=== PATIENT | female | born 1965 | race Caucasian/White ===

== ENCOUNTER 2021-12-11 07:57 | Outpatient (CLI) | payer OTHER, SELFPAY ==
--- OUTSIDE RECORDS SUMMARY | 2021-11-30 10:22 | XMS_ITS | Continuity of Care Document ---
:1965 Author Allergies, Adverse Reactions, Alerts No known allergies Social History Smoking Status Status Start Date End Date Date of Observat ion Never smoked tobacco August 08, 2021 2:25pm (finding) Additional Data Assigned Sex Female Problems Active Problems Medical Problem Onset Date Status Well woman exam with routine Active gynecological exam Perimenopausal vasomotor symptoms Active Dyspareunia Active Screening for lipid disorders Active Screening for lipid disorders Active Screening due Active Perimenopausal atrophic vaginitis Active Inactive/Resolved Problems Medical Problem Onset Date Status Perforation of right tympanic May 15, 2015 Resolved membrane Medications Medication Status Dose Units Route Directions Qty Days Start End Ins tructions Date Date Estradiol Active 10 MCG PV Twice 05 September Insert 1 tablet vaginally QHS x2 wks, then QO night for 2 Hemihydrate Weekly , t hen 2x/wk. (Vagifem 10 2021 Mcg) 10 Mcg 1:49pm TAB Immunizations Immunization Event Date Not Given Dose Circle Shear Operator Lot Vac cine Reason Number Number Informatio n Statement (VIS) Deta il Influenza March 222019 Tetanus/Diptheri February 08 a 2002 Tetanus/Diptheri October 23 a 1992 Tdap June 28 (adolescent/adul 2013 t) Advance Directives Advance Directive Response Recorded Date/Time Has patient completed a No August 08, 2021 2:25pm Health Care Directive? Insurance Providers Guarantor S[facility] Woodard Address [address] [place] [id number] Contact Info. Home Phone: Payer Policy Id Coverage Id Subscriber's Subscriber Effective Expi ration Name Id Date Date [place] [id number] [place] [id number] [facility] Plan of Treatment Future Tests Future scheduled test information is unavailable Pending Tests Pending diagnostic test information is unavailable Future Visits Future appointment information is unavailable Referrals to Other Providers Referral information is unavailable Future Procedures Procedure Name Scheduled Date JOAN Bilat Mammo Scrn Future Medications Future medication information is unavailable Patient Instructions Patient instructions are unavailable
--- NOTE | 2021-12-11 08:15 | CRLHL7_ITS ---
For Patients: As a result of the Century Cures Act, medical imaging exams and procedure reports are released immediately into your electronic medical record. You may view this report before your referring provider. If you have questions, please contact your health care provider. BILATERAL MAMMOGRAM WITH COMPUTER-AIDED DETECTION TECHNIQUE: CC and MLO views were obtained. These mammographic images have been obtained using full-field digital technique. These mammographic images were interpreted with the benefit of computer-aided detection. COMPARISON FILM: 11/24/2020, 11/15/2019, 10/19/2018. FINDINGS: The breasts are heterogeneously dense, which may obscure small masses IMPRESSION: There is no radiographic evidence for malignancy. ASSESSMENT: BI-RADS Category 1: Negative RECOMMENDATION: Routine screening mammogram in 1 year. A lay language report of this examination will be provided to the patient. Abhijit Franks M.D. Diagnostic Radiologist [email or web address] CORKY/Dictated by: Abhijit Franks MD @ 12/11/2021 10:57:00 AM (Electronically Signed)
== END 2021-12-11 07:58 | disposition home or self-care (01) ==
LOC: MAMMO 07:58
PROVIDERS: Visit Provider Obstetrics & Gynecology
DX: Z12.31 Encounter for screening mammogram for malignant neoplasm of breast (principal)
CPT/HCPCS: 77063; 77067

== ENCOUNTER 2022-09-18 08:43 | Outpatient (CLI) | payer BC, SELFPAY | END 2022-09-18 08:44 | disposition home or self-care (01) | PROVIDERS: Visit Provider Obstetrics & Gynecology | DX: Z01.419 Encounter for gynecological examination (general) (routine) without abnormal findings (principal); E78.00 Pure hypercholesterolemia, unspecified; Z13.6 Encounter for screening for cardiovascular disorders; Z13.1 Encounter for screening for diabetes mellitus | CPT/HCPCS: 80061; 82947 ==

== ENCOUNTER 2022-12-13 07:55 | Outpatient (CLI) | payer BC, SELFPAY ==
--- NOTE | 2022-12-13 08:15 | CRLHL7_ITS ---
For Patients: As a result of the Century Cures Act, medical imaging exams and procedure reports are released immediately into your electronic medical record. You may view this report before your referring provider. If you have questions, please contact your health care provider. BILATERAL SCREENING MAMMOGRAM WITH COMPUTER-AIDED DETECTION AND TOMOSYNTHESIS TECHNIQUE: CC and MLO views were obtained. These mammographic images have been obtained using full-field digital technique. These mammographic images were interpreted with the benefit of computer-aided detection. Breast Tomosynthesis was used in this interpretation. COMPARISON FILM: 12/11/21, 11/24/20, 11/15/19. FINDINGS: The breasts are heterogeneously dense, which may obscure small masses IMPRESSION: There is no radiographic evidence for malignancy. ASSESSMENT: BI-RADS Category 1: Negative RECOMMENDATION: Routine screening mammogram in 1 year. A lay language report of this examination will be provided to the patient. Abhijit Franks M.D. Diagnostic Radiologist [email or web address] CORKY/Dictated by: Abhijit Franks MD @ 12/13/2022 11:46:00 AM (Electronically Signed)
== END 2022-12-13 07:56 | disposition home or self-care (01) ==
LOC: MAMMO 07:56
PROVIDERS: Visit Provider Obstetrics & Gynecology
DX: Z12.31 Encounter for screening mammogram for malignant neoplasm of breast (principal); R92.2 Inconclusive mammogram
CPT/HCPCS: 77063; 77067

== ENCOUNTER 2023-12-16 07:57 | Outpatient (CLI) | payer BC, SELFPAY ==
--- NOTE | 2023-12-16 08:15 | CRLHL7_ITS ---
For Patients: As a result of the Cures Act, medical imaging exams and procedure reports are released immediately into your electronic medical record. You may view this report before your referring provider. If you have questions, please contact your health care provider. BILATERAL SCREENING MAMMOGRAM WITH COMPUTER-AIDED DETECTION AND TOMOSYNTHESIS TECHNIQUE: CC and MLO views were obtained. These mammographic images have been obtained using full-field digital technique. These mammographic images were interpreted with the benefit of computer-aided detection. Breast Tomosynthesis was used in this interpretation. COMPARISON FILM: 12/13/22, 12/11/21, 11/24/20. FINDINGS: The breasts are heterogeneously dense, which may obscure small masses IMPRESSION: There is no radiographic evidence for malignancy. ASSESSMENT: BI-RADS Category 2: Benign RECOMMENDATION: Routine screening mammogram in 1 year. A lay language report of this examination will be provided to the patient. LUCI AMANDA M.D. Diagnostic/Nuclear Medicine Radiologist [email or web address] TRACEY:flako Transcribed: 1:27 p.mMey arriola/Dictated by: Luci Amanda MD @ 12/18/2023 9:33:00 AM (Electronically Signed)
== END 2023-12-16 07:58 | disposition home or self-care (01) ==
LOC: MAMMO 07:58
PROVIDERS: Visit Provider Obstetrics & Gynecology
DX: Z12.31 Encounter for screening mammogram for malignant neoplasm of breast (principal); R92.2 Inconclusive mammogram
CPT/HCPCS: 77063; 77067

== ENCOUNTER 2023-12-17 08:33 | Outpatient (CLI) | payer BC, SELFPAY | END 2023-12-17 08:34 | disposition home or self-care (01) | LOC: NFLDREF 12-18 07:46 | PROVIDERS: Visit Provider Obstetrics & Gynecology | DX: Z01.419 Encounter for gynecological examination (general) (routine) without abnormal findings (principal); E78.00 Pure hypercholesterolemia, unspecified; R73.03 Prediabetes | CPT/HCPCS: 80061; 82947 ==

== ENCOUNTER 2024-12-28 15:31 | Outpatient (CLI) | payer BC, SELFPAY ==
--- NOTE | 2024-12-28 16:00 | CRLHL7_ITS ---
For Patients: As a result of the Century Cures Act, medical imaging exams and procedure reports are released immediately into your electronic medical record. You may view this report before your referring provider. If you have questions, please contact your health care provider. INDICATION: BILATERAL SCREENING MAMMOGRAM, ASYMPTOMATIC 59 Y/O FEMALE COMPARISON: 12/16/2023, 12/13/2022, 12/11/2021 TECHNIQUE: Digital mammogram in CC and MLO projections including computer-aided detection (CAD) and tomosynthesis. BREAST COMPOSITION: The breasts are heterogeneously dense, which may obscure small masses. FINDINGS: No suspicious findings. ASSESSMENT: BI-RADS 1 Negative RECOMMENDATION: Annual screening mammogram. A lay language report of this examination will be provided to the patient. Dictated by: Mar Ernandez MD @ 12/30/2024 11:27:45 (Electronically Signed)
== END 2024-12-28 15:32 | disposition home or self-care (01) ==
LOC: MAMMO 15:31
PROVIDERS: PCP Family Medicine; Visit Provider Obstetrics & Gynecology
DX: Z12.31 Encounter for screening mammogram for malignant neoplasm of breast (principal); R92.333 Mammographic heterogeneous density, bilateral breasts
CPT/HCPCS: 77063; 77067

== ENCOUNTER 2025-01-12 08:33 | Outpatient (CLI) | payer BC, SELFPAY ==
[2025-01-14 06:54] LABS: HPV Source Cervix
[2025-01-17 12:33] LABS: Pap Test Digital Imaging Done
== END 2025-01-12 08:34 | disposition home or self-care (01) ==
PROVIDERS: PCP Family Medicine; Visit Provider Obstetrics & Gynecology
DX: Z12.4 Encounter for screening for malignant neoplasm of cervix (principal); Z13.6 Encounter for screening for cardiovascular disorders; Z13.1 Encounter for screening for diabetes mellitus; Z11.51 Encounter for screening for human papillomavirus (HPV)
CPT/HCPCS: 80061; 82947; 87624; 87625; 88141; 88142; 88175